=== PATIENT | male | born 1980 | race Two or more races ===

== ENCOUNTER 2022-09-30 11:33 | Emergency (ER) | payer OTHER ==
[~2022-09-30] VITALS: Ht 193 cm; Wt 90.7 kg
== END 2022-09-30 15:02 | disposition home or self-care (01) ==
LOC: ER 11:33
DX: M54.2 Cervicalgia (principal); M25.561 Pain in right knee

== ENCOUNTER 2022-10-05 07:23 | Outpatient (CLI) | payer OTHER | END 2022-10-05 07:34 | disposition home or self-care (01) | LOC: LAB 07:23 | DX: E11.69 Type 2 diabetes mellitus with other specified complication (principal); E66.9 Obesity, unspecified; I11.9 Hypertensive heart disease without heart failure; E55.9 Vitamin D deficiency, unspecified; E03.9 Hypothyroidism, unspecified; N39.0 Urinary tract infection, site not specified; N40.0 Benign prostatic hyperplasia without lower urinary tract symptoms; M54.40 Lumbago with sciatica, unspecified side; M54.2 Cervicalgia; M25.561 Pain in right knee ==

== ENCOUNTER 2022-10-30 23:15 | Emergency (ER) | payer OTHER ==
[~2022-10-30] VITALS: Ht 193 cm; Wt 89.8 kg
[2022-10-31] MEDS ORDERED: KETO10TA2 PO (01:41)
== END 2022-10-31 01:45 ==
LOC: ER 23:15
DX: S00.33XA Contusion of nose, initial encounter (principal); W21.05XA Struck by basketball, initial encounter; Y93.9 Activity, unspecified; Y92.9 Unspecified place or not applicable; Y99.9 Unspecified external cause status

== ENCOUNTER 2022-11-27 16:55 | Outpatient (CLI) | payer OTHER | END 2022-11-27 16:59 | disposition home or self-care (01) | LOC: RAD 16:55 | PROVIDERS: ATTEND General Practice | DX: R93.6 Abnormal findings on diagnostic imaging of limbs (principal); M79.672 Pain in left foot; M79.642 Pain in left hand ==

== ENCOUNTER → 2022-11-27 | Emergency (ER) | payer OTHER ==
[~2022-11-27] VITALS: Ht 193 cm; Wt 90.7 kg
[~2022-11-27] MED LIST: KETO10TA2 PO
== END | disposition left against medical advice (07) ==
LOC: ER 00:53
DX: Z53.21 Procedure and treatment not carried out due to patient leaving prior to being seen by health care provider (principal)

== ENCOUNTER 2023-01-13 11:41 | Outpatient (CLI) | payer OTHER ==
[~2023-01-13 11:41] MED LIST changes: +DICLOFENAC POTA50 MG PO
== END 2023-01-13 11:44 | disposition home or self-care (01) ==
LOC: RAD 11:41
PROVIDERS: ATTEND Physical Medicine & Rehabilitation
DX: M79.642 Pain in left hand (principal)

== ENCOUNTER 2024-05-06 06:40 | Outpatient (CLI) | payer OTHER ==
[2024-05-06 07:10] LABS: HEMATOCRIT 37.3 % (39.0-48.0); HEMOGLOBIN 12.4 g/dL (13-16.00); MEAN CELL VOLUME 86.3 fL (80.0-100.00); MEAN CORPUSCULAR HEMOGLOBIN 28.8 pg (27.00-32.0); MEAN CORPUSCULAR HGB CONC 33.4 g/dl (32.0-36.0); PLATELET COUNT 216 K/uL (150-450); RED BLOOD COUNT 4.32 M/uL (4.00-6.00); RED CELL DISTRIBUTION WIDTH 12.6 % (11.5-14.5)
[2024-05-06 07:14] LABS: PH,URINE 5.5 (5.0-8.0); URINE APPEARANCE Clear; URINE BILIRRUBIN Negative (NEGATIVE); URINE BLOOD Negative; URINE COLOR Yellow; URINE GLUCOSE Negative (NEGATIVE); URINE KETONE Negative (NEGATIVE); URINE LEUKOCYTE Negative; URINE NITRATE Negative; URINE PROTEIN Negative (NEGATIVE)
[2024-05-06 07:15] LABS: URINE RBC 5.4 uL (0.0-20.8); URINE WBC 2.2 uL (0.0-23.2)
[2024-05-06 07:31] LABS: URINE BACTERIA 3.6 uL (0.0-1933); URINE EPITHELIAL CELLS 0.9 uL (0.0-38.8)
[2024-05-06 08:29] LABS: ALBUMIN 3.9 gm/dL (3.4-5.0); BILIRUBIN TOTAL 0.68 mg/dL (0.3-1.2); CALCIUM 9.2 mg/dL (8.5-10.1); CREATININE SERUM 0.95 mg/dL (0.70-1.30); GFR 85.73; GLOBULINA 3.6 G/DL (2.4-3.5); POTASSIUM 3.94 mEq/L (3.5-5.1); PROSTATIC SPECIFIC ANTIGEN 0.345 NG/ML (0.010-4.00); T4 FREE 1.02 NG/ML (0.76-1.46); TOTAL PROTEIN 7.5 gm/dL (6.4-8.2); TSH 0.987 uIU/mL (0.358-3.74)
== END 2024-05-06 06:53 | disposition home or self-care (01) ==
LOC: LAB 06:40
DX: E11.69 Type 2 diabetes mellitus with other specified complication (principal); E66.9 Obesity, unspecified; I11.9 Hypertensive heart disease without heart failure; N39.0 Urinary tract infection, site not specified; E55.9 Vitamin D deficiency, unspecified; E05.90 Thyrotoxicosis, unspecified without thyrotoxic crisis or storm; Z00.00 Encounter for general adult medical examination without abnormal findings

== ENCOUNTER 2024-06-02 14:02 | Outpatient (CLI) | payer OTHER | END 2024-06-02 14:04 | disposition home or self-care (01) | LOC: SONOGRAMA 14:02 | PROVIDERS: ATTEND General Practice | DX: Z00.00 Encounter for general adult medical examination without abnormal findings (principal); Z68.24 Body mass index [BMI] 24.0-24.9, adult; R22.1 Localized swelling, mass and lump, neck ==

== ENCOUNTER 2024-07-15 08:35 | Outpatient (CLI) | payer OTHER | END 2024-07-15 08:37 | disposition home or self-care (01) | LOC: SONOGRAMA 08:35 | PROVIDERS: ATTEND Pathology Anatomic Pathology & Clinical Pathology | DX: D34 Benign neoplasm of thyroid gland (principal); E06.3 Autoimmune thyroiditis; E04.1 Nontoxic single thyroid nodule ==